=== PATIENT | male | born 2005 | race Caucasian/White ===

== ENCOUNTER 2024-12-27 00:16 | Inpatient (IN) ==
[2024-12-27 01:42] LABS: Appearance Urine Clear (Clear); Bacteria Urine Automated None Seen (None Seen); Bilirubin Urine Negative (Negative); Blood Urine Negative (Negative); Cast Urine Automated 0-2 /lpf (0-2); Color Urine Yellow; Epithelial Cell Urine Auto 0-2 /hpf (0-2); Glucose Urine UA Negative (Negative); Ketones Urine Trace (Negative); Leukocyte Esterase Urine Negative (Negative); Mucus Urine Present (None Prsent); Nitrite Urine Negative (Negative); Protein Urine Trace (Negative); RBC Urine Automated 0-2 /hpf (0-2); Specific Gravity Urine 1.032 (1.000-1.030); Urobilinogen Urine Negative (Negative); WBC Urine Automated 0-5 /hpf (0-5); pH Urine 5.5 (4.5-7.5)
[2024-12-27 01:49] LABS: Albumin Globulin Ratio 1.5 (0.9-2); Albumin Level 4.6 gm/dl (3.4-5.0); BUN Creatinine Ratio 10.5 (10-20); Basophils # (auto) 0.03 K/uL (0.00-0.20); Basophils % (auto) 0.4 %; Bilirubin,Total 0.6 mg/dl (0.2-1.0); Calcium 9.6 mg/dl (8.6-10.3); Creatinine Clr Calc Pharmacy 139.5 ml/min; Eosinophils # (auto) 0.05 K/uL (0.00-0.50); Eosinophils % (auto) 0.6 %; Hematocrit (blood only) 44.1 % (42.0-52.0); Immature Granulocytes # (auto) 0.02 K/uL (0.01-0.20); Immature Granulocytes % (auto) 0.3 %; Lymphocytes # (auto) 1.51 K/uL (1.20-3.40); Lymphocytes % (auto) 19.5 %; Mean Corpuscular Hemoglobin 30.2 pg (25.0-34.0); Mean Corpuscular Volume 88.9 fL (80.0-100.0); Mean Platelet Volume 10.2 fL (9.4-12.4); Monocytes # (auto) 0.58 K/uL (0.11-0.59); Monocytes % (auto) 7.5 %; Neutrophils # (auto) 5.56 K/uL (1.40-6.50); Neutrophils % (auto) 71.7 %; Platelet Count 269 K/uL (130-400); Potassium 3.5 mmol/L (3.5-5.1); RDW Standard Deviation 42.1 fL (36.4-46.3); Red Blood Count 4.96 M/uL (4.70-6.10); Total Protein 7.6 gm/dl (6.0-8.3); White Blood Count 7.75 K/ul (4.8-10.8)
[2024-12-27 02:04] LABS: Acetaminophen < 3 ug/ml (10-30); Salicylate < 3.0 mg/dl (3.0-30)
[2024-12-27 02:04] LABS: Amphetamines+Metham, Urine Neg (Neg); Barbiturates, Urine Neg (Neg); Benzodiazepine, Urine Neg (Neg); Cocaine, Urine Neg (Neg); Fentanyl, Urine Neg (Neg); MDMA (Ecstacy), Urine Neg (Neg); Marijuana, Urine Neg (Neg); Methadone, Urine Neg (Neg); Opiate, Urine Neg (Neg); Phencyclidine, Urine Neg (Neg)
[2024-12-27 02:05] LABS: Thyroid Stimulating Hormone 2.158 uIu/ml (0.300-4.500)
--- NOTE | 2024-12-27 02:16 | Emergency Department Note ---
Impression & Plan Suicidal ideation, Acute anxiety ED Provider Note ED Provider Note NAME: ARMEN Carr CHUN AGE:19 SEX: Male : 2005 ARRIVES VIA: Police INFORMANT: Patient ED PROVIDER(s): Leatha Dos Santos DO CHIEF COMPLAINT: Mental health evaluation HPI: This is a 19-year-old male brought in by police for mental health evaluation. Police state they were called by the [facility] crisis line that the patient had contacted due to increased anxiety, and suicidal ideation and mentioning that he had a knife. When police found him he was tearful, with a knife accompanying him. At this time patient is calm. He admits to prior thoughts of suicide and wanting to stab himself. He denies HI, paranoia, hallucinations. PAST MEDICAL HISTORY:See Below PAST SURGICAL HISTORY:See Below FAMILY HISTORY:See Below SOCIAL HISTORY:See Below HOME MEDICATIONS:See Below ALLERGIES:See Below VITALS:See Below PHYSICAL EXAMINATION: GENERAL: alert, well appearing, well nourished, no distress, non-toxic EYE EXAM: normal conjunctiva, PERRL and EOM's grossly intact OROPHARYNX: no exudate, no erythema, lips, buccal mucosa, and tongue normal and mucous membranes are moist NECK: supple, no nuchal rigidity, no adenopathy, non-tender LUNGS: Clear to auscultation. Normal chest wall mechanics, no w/r/r HEART: no murmurs, S1 normal and S2 normal ABDOMEN: abdomen soft, non-tender, normo-active bowel sounds, no masses, no rebound or guarding. SKIN: no rashes, petechiae, orbruising UPPER EXTREMITIES: upper extremities are grossly normal. FROM, nml pulses b/l. LOWER EXTREMITIES: No pitting edema. FROM, nml pulses b/l. NEURO EXAM: Normal sensorium, cranial nerves II-XII grossly intact, normal speech, no facial droop,nogross weakness of arms, no gross weakness of legs. Gross sensation intact. No ataxia. Vital Signs: reviewed and remarkable Differential Diagnosis: mood disorder, suicidal ideation, anxiety, depression, substance abuse, toxidrome, infection, hypoglycemia, electrolyte abnormalities, ICH as well as others were considered. MEDICAL DECISION MAKING: This is a 19-year-old male presents following suicidal ideation and active furtherance by obtaining a knife. Patient did contact a veterans hotline first who contacted police due to concern for the knife and thoughts of wanting to stab himself. Patient, cooperative here. Labs and urine collected and sent per protocol. Patient medically cleared by me. He was evaluated by case management and in agreement with plan for inpatient mental health treatment. Patient referred to [facility] who accepted him. 201 signed by me. Consultation(s): 0145: Patient seen and evaluated by case management. He was referred to [facility] 0335: 201 signed by me. Patient accepted to [facility] for additional inpatient mental health treatment. ER Treatment Provided: See below Diagnostics Interpreted By Me: Triage Nursing Note Reviewed Prior/Outside Records Reviewed Past Med/Surg History Problem List (Updated 12/27/24 @ 02:16 by Leatha Dos Santos DO) Suicidal ideation (Acute) CHI (closed head injury) (Acute) Syncope, vasovagal (Acute) Syncope (Acute) Hyperventilation (Acute) Acute anxiety (Acute) Chest pain (Acute) Medical History No pertinent family history Vasovagal syncope Anxiety Surgical History No pertinent past surgical history Social History Smoking Status: Never smoker Hx Alcohol Use: No Hx Substance Use: No Preferred Language: Andorran Communication Ability: Effective Compensation Consulting Manager Required: No Beliefs That Will Affect Care: None Feels Safe at Home: Yes Gender Identity: Male Assistive Devices: None Allergies Allergies Allergy/AdvReac Type Severity Reaction Status Date / Time No Known Allergies Allergy Unverified 12/27/24 01:49 Home Meds Home Medications Medication Instructions Recorded Confirmed albuterol sulfate 2 puff inhalation PRN Shortness Of 12/27/24 Breath Results & Data (ED) Vital Signs Vital Signs - 24 hr 12/27/24 00:30 12/27/24 00:39 12/27/24 03:19 Temperature 37.2 C 37.2 C 36.6 C Temperature Source Oral Oral Oral Pulse Rate 65 Pulse Rate [Right Finger] 65 52 L Pulse Rhythm Regular Pulse Rhythm [Right Finger] Regular Regular Pulse Strength Normal Pulse Strength [Right Finger] Normal Normal Respiratory Rate 18 16 16 Respiratory Effort / Characteristics Non-Labored Non-Labored Non-Labored Spontaneous Respiratory Depth Normal Normal Normal Respiratory Pattern Regular Regular Regular Blood Pressure 146/82 H Blood Pressure [Right Arm] 146/82 H 129/76 Blood Pressure Mean 103 Blood Pressure Mean [Right Arm] 103 93 Blood Pressure Position Lying Blood Pressure Position [Right Arm] Lying Pulse Oximetry 97 97 96 Oxygen Delivery Method Room Air Room Air Room Air Sepsis Recent Fever Within 48 Hours No Sepsis New/Unexplained Change in Mental Status N/A Sepsis Action Taken by Nursing No Action Required Laboratory Data 12/27/24 01:12 12/27/24 01:12 Lab Results 12/27/24 12/27/24 12/27/24 Range/Units 00:28 01:12 01:16 WBC 7.75 (4.8-10.8) K/ul RBC 4.96 (4.70-6.10) M/uL Hgb 15.0 (14.0-18.0) g/dl Hct 44.1 (42.0-52.0) % MCV 88.9 (80.0-100.0) fL MCH 30.2 (25.0-34.0) pg MCHC 34.0 (32.0-36.0) g/dL RDW Std Deviation 42.1 (36.4-46.3) fL RDW Coeff of Fernando 13.0 (11.5-14.5) % Plt Count 269 (130-400) K/uL MPV 10.2 (9.4-12.4) fL Immature Gran % (Auto) 0.3 % Neut % (Auto) 71.7 % Lymph % (Auto) 19.5 % [place] % (Auto) 7.5 % Eos % (Auto) 0.6 % Baso % (Auto) 0.4 % Neut # (Auto) 5.56 (1.40-6.50) K/uL Lymph # (Auto) 1.51 (1.20-3.40) K/uL [place] # (Auto) 0.58 (0.11-0.59) K/uL Eos # (Auto) 0.05 (0.00-0.50) K/uL Baso # (Auto) 0.03 (0.00-0.20) K/uL Immature Gran # (Auto) 0.02 (0.01-0.20) K/uL Sodium 140 (136-145) mmol/L Potassium 3.5 (3.5-5.1) mmol/L Chloride 107 (98-107) mmol/L Carbon Dioxide 27 (21-32) mmol/L Anion Gap 6 (3-11) BUN 10 (6-23) mg/dl Creatinine 0.95 (0.6-1.4) mg/dl Est Cr Clr Drug Dosing 139.5 ml/min eGFR 117.51 BUN/Creatinine Ratio 10.5 (10-20) Glucose 101 H (70-99(Fasting)) mg/dl Calcium 9.6 (8.6-10.3) mg/dl Total Bilirubin 0.6 (0.2-1.0) mg/dl AST 22 (13-39) U/L ALT 40 (7-52) U/L Alkaline Phosphatase 73 (34-104) U/L Total Protein 7.6 (6.0-8.3) gm/dl Albumin 4.6 (3.4-5.0) gm/dl Globulin 3.0 (2.5-4.0) gm/dl Albumin/Globulin Ratio 1.5 (0.9-2) TSH 2.158 (0.300-4.500) uIu/ml Urine Color Yellow Urine Appearance Clear (Clear) Urine pH 5.5 (4.5-7.5) Ur Specific [place] 1.032 H (1.000-1.030) Urine Protein Trace H (Negative) Urine Glucose (UA) Negative (Negative) Urine Ketones Trace H (Negative) Urine Blood Negative (Negative) Urine Nitrite Negative (Negative) Urine Bilirubin Negative (Negative) Urine Urobilinogen Negative (Negative) Ur Leukocyte Esterase Negative (Negative) Urine WBC (Auto) 0-5 (0-5) /hpf Urine RBC (Auto) 0-2 (0-2) /hpf U Hyaline Cast (Auto) 0-2 (0-2) /lpf U Epithel Cells (Auto) 0-2 (0-2) /hpf Urine Bacteria (Auto) None Seen (None Seen) Urine Mucus Present A (None Prsent) Salicylates < 3.0 L (3.0-30) mg/dl Urine Opiates Screen Neg (Neg) Ur Methadone, Qual Neg (Neg) Urine Fentanyl Screen Neg (Neg) Acetaminophen < 3 L (10-30) ug/ml Urine Barbiturates Neg (Neg) Ur Phencyclidine (PCP) Neg (Neg) U Amphetamin/Meth Scrn Neg (Neg) MDMA (Ecstasy) Screen Neg (Neg) U Benzodiazepines Scrn Neg (Neg) Ur Cocaine Metabolite Neg (Neg) U Marijuana (THC) Screen Neg (Neg) Ethyl Alcohol mg/dL < 10.0 (<10.0) mg/dl Discharge Plan Visit Data Chief Complaint: Mental Health Evaluation ED Provider: Leatha Dos Santos Discharge Problem: Suicidal ideation, Acute anxiety Patient Disposition: Admitted As Inpatient Discharge Instructions Interventions: ED Discharge Assessment Last Done: 12/27/24 03:53
[2024-12-27] MEDS ORDERED: SODIUM CHLORIDE 0.65% NA SOLN 45 ML (OCEAN) PRN ×2 (03:24→04:23)
[2024-12-27] MEDS ORDERED: hydrOXYzine HCl 25 MG TAB PO PRN ×4 (03:24→04:23)
[2024-12-27] MEDS ORDERED: ACETAMINOPHEN 325 MG TAB PO PRN ×2 (03:24→04:23)
[2024-12-27] MEDS ORDERED: BISMUTH SUBSALICYLATE 262 MG CHEW PO PRN ×2 (03:24→04:23)
[2024-12-27] MEDS ORDERED: ALUMINUM/MAGNESIUM SUSP 30 ML UDC PO PRN ×2 (03:24→04:23)
[2024-12-27] MEDS ORDERED: MAGNESIUM HYDROXIDE SUSP 30 ML UDC PO PRN ×2 (03:24→04:23)
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
[2024-12-27] MEDS ORDERED: LORazepam 0.5 MG TAB PO PRN (14:48)
[2024-12-27] MEDS: SERTRALINE HCL 50 MG TABLET PO SCH (15:35)
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
== END 2024-12-29 13:28 | disposition home or self-care (01) | DRG 885 ==
LOC: ED 00:16 → 3S 03:26
DX: F33.1 Major depressive disorder, recurrent, moderate; R55 Syncope and collapse; R45.851 Suicidal ideations; Z60.4 Social exclusion and rejection; F41.0 Panic disorder [episodic paroxysmal anxiety]